=== PATIENT | male | born 1940 | race Caucasian/White ===

== ENCOUNTER → 2018-11-21 | Outpatient (CLI) | payer BC ==
--- NOTE | 2018-11-21 14:40 | RADRPT ---
Vent Rate: 51 bpm RR Interval: 1176 msec MA Interval: 181 msec QRS Duration: 158 msec QT Interval: 442 msec QTC Interval: 408 msec P-R-T [place]: 57 - -55 - 2 degrees Sinus rhythm...normal P axis, V-rate 50- 99 RBBB and LAFB...QRSd >120mS, axis(-40,240) Probable left ventricular hypertrophy...(RaVL+SV3)xQRSd >280 Electronically Signed By: Garret Talamantes
== END | disposition home or self-care (01) ==
LOC: LAB 13:45
PROVIDERS: ATTEND Internal Medicine
DX: R07.89 Other chest pain (principal); D64.9 Anemia, unspecified; D68.9 Coagulation defect, unspecified; J20.9 Acute bronchitis, unspecified
CPT/HCPCS: 71046; 80053; 81003; 85025; 85610; 85730; 93005

== ENCOUNTER 2018-12-08 06:03 | Inpatient (IN) | payer BC, MEDICARE ==
--- NOTE | 2018-12-06 20:59 | HP ---
DATE OF ADMISSION: 11/21/2018 HISTORY OF PRESENT ILLNESS: The patient is to be admitted on elective basis on 12/08/2018. The naa ent is a 78-year-old gentleman well known to me from previous followup with history of severe right h ip pain not responding to conservative management and the patient is being admitted for right hip rep lacement per Dr. Silva. REVIEW OF SYSTEMS: HEAD: No history of headaches, focal weakness or numbness. EYES: History of floaters. No history of blurry vision or glaucoma. ENT: No sinusitis, tonsillitis or hoarseness. NECK: No history of neck pain. No history of thyroid disease. CHEST: The patient denies any cough, wheezing or asthma. No history of fever or chills. Smokes cig ars occasionally. No history of hemoptysis or tuberculosis. No history of shortness of breath on mi nimal exertion. GASTROINTESTINAL: No constipation, diarrhea, change in bowel habits. Status post recent colonoscopy with polyps taken out. CARDIOVASCULAR: No chest pain, palpitations, shortness of breath. History of mild hyperlipidemia, c ontrolled on statins. GENITOURINARY: No dysuria, hematuria, kidney stones. SLEEP: The patient does tend to snore. No history of obstructive sleep apnea. MEDICATIONS: Include: 1. Pravastatin 80 mg daily. 2. Mobic 15 mg p.o. daily. 3. Protonix 40 mg p.o. daily for GERD. 4. Gabapentin 100 mg p.o. t.i.d. FAMILY HISTORY: Noncontributory. ALLERGIES: NO KNOWN ALLERGIES. PHYSICAL EXAMINATION: GENERAL: The patient is an average-built male who is presently in no acute distress. VITAL SIGNS: Blood pressure 130/90, respiratory 20 per minute. HEENT: Head is normocephalic. No pallor, cyanosis or icterus. Tongue is moist. NECK: Supple. No thyromegaly, bruits or lymphadenopathy. CHEST: Revealed decreased breath sounds at bases. HEART: S1, S2 heard. No definite gallops. ABDOMEN: Soft, nontender, obese. No hepatosplenomegaly. EXTREMITIES: No edema. Pedals are 2+ bilaterally. Homans sign is negative. NEUROLOGIC: No localizing or lateralizing signs. 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 Chest x-ray shows haziness at the left base. LABORATORY DATA: WBC count 8.3, hematocrit 44.8. INR 0.88, PTT 27.5. UA is negative for glucose, k etones, proteins. Sodium 138, potassium 4.9, BUN 33, creatinine 1.67. IMPRESSION: 1. Severe degenerative joint disease of the right hip. 2. Mild hyperlipidemia, controlled on statins. 3. Chest x-ray abnormality of haziness in the left base. Clinically, the patient does not appear to have any pneumonia, likely atelectatic changes. The patient's overall medical condition is stable f or the proposed surgery. We will obtain followup chest x-rays and also consider CT as outpatient. Dictated By: GEORGE BARRETO MD, SR/YULIA Conf#: [id number] DID#: [id number]
[~2018-12-08] VITALS: Ht 175.3 cm; Wt 99.0 kg
[2018-12-08] VITALS (25 sets, daily range): BP systolic 66–160; BP diastolic 58–85; PULSE 48–66; RESP 10–20; Ht 175.3 cm; Wt 99.0 kg
[~2018-12-08 06:03] MED LIST: CEFAZOLIN 2 GM/50 ML (PMX) 50 ML (FOR WT < 120 KG) IVPB ONE; LACTATED RINGER'S 1,000 ML IV SCH; TRANEXAMIC ACID 1GM/100ML(PMX) 100 ML AT CLOSURE X1 IVPB ONE; TRANEXAMIC ACID 1GM/100ML(PMX) 100 ML AT INCISION X1 IVPB ONE; TRANEXAMIC ACID 1GM/100ML(PMX) 100 ML INTRA-OP X1 IVPB ONE; TRANEXAMIC ACID 1GM/100ML(PMX) 100 ML PRE-OP X1 IVPB ONE
[2018-12-08] MEDS ORDERED: POLYMYXIN B 500000 UNIT INJ ONE (06:57)
[2018-12-08] MEDS ORDERED: BACITRACIN 50000 UNITS INJ ONE (06:59)
--- NOTE | 2018-12-08 07:20 | PREAC ---
Date/Time of Note Date/Time of Note DATE: 12/08/18 TIME: 07:18 Anesthesia Eval and Record Evaluation Time Pre-Procedure Interview DATE: 12/08/18 TIME: 07:18 Age 78 Sex male NPO: 8 hrs Preoperative diagnosis osteoarthritis Planned procedure right hip replacement Past Medical History Past Medical History: Includes Endo: Diabetes Musculoskeletal: Osteoarthritis GI: Obesity Surgery & Anesthesia Issues No known issue Meds Anticoagulation: No Beta Clif within 24 hr: No Reason Beta Clif not given: Pt. not on B-Clif Current Medications Lactated Ringer's 1,000 ml @ 125 mls/hr Q8H IV Last administered on 12/08/18at 06:56; Admin Dose 125 MLS/HR; Start 12/08/18 at 06:00 Meds reviewed: Yes Allergies Coded Allergies: No Known Drug Allergies (Unverified Allergy, Unknown, 11/21/18) Allergies Reviewed: Yes Labs/Studies Labs Reviewed: Reviewed by anesthesiologist test: N/A Studies: ECG, CXR Pre-procedure Exam Airway: Adequate mouth opening, Adequate thyromental dist Mallampati: Mallampati II Teeth: Normal Lung: Normal Heart: Normal ASA Physical Status ASA physical status: 2 Emergency: None Planned Anesthetic Neuraxial: Spinal Planned Pain Management Parenteral pain med Pre-operative Attestations Prior to commencing anesthesia and surgery, the patient was re-evaluated, there was verification of: *The patient's identity *The results of appropriate recent lab work and preoperative vital signs *The above evaluation not changing prior to induction *Anesthetic plan, risk benefits, alternative and complications discussed with patient/family; questions answered; patient/family understands, accepts and wishes to proceed. LUTHER RODRIGEZ Dec 08, 2018 07:19
--- NOTE | 2018-12-08 07:26 | HPN ---
Date/Time of Note Date/Time of Note DATE: 12/08/18 TIME: 07:25 Interval H&P Admission Note Pt. seen H&P reviewed: No system changes CONCEPCION STEVENSON Dec 08, 2018 07:25
[2018-12-08] MEDS ORDERED: CEFAZOLIN 1 GM INJ ONE (07:29)
[2018-12-08] MEDS ORDERED: TRANEXAMIC ACID 1 GM/100 ML (PMX) ONE (07:29)
[2018-12-08] MEDS ORDERED: SEVOFLURANE 15 MIN ONE (07:29)
[2018-12-08] MEDS ORDERED: MIDAZOLAM 1 MG/ML 2 ML INJ ONE ×2 (07:29)
[2018-12-08] MEDS ORDERED: LIDOCAINE 2% (SDV) 5 ML INJ ONE (07:29)
[2018-12-08] MEDS ORDERED: FENTAnyl 50 MCG/ML VIAL ONE (07:30)
[2018-12-08] MEDS ORDERED: PROPOFOL 20 ML ONE (07:39)
[2018-12-08] MEDS ORDERED: ROCURONIUM 50 MG INJ ONE (07:39)
[2018-12-08] MEDS ORDERED: DEXAMETHASONE 4 MG/ML 5 ML INJ ONE (08:12)
[2018-12-08] MEDS ORDERED: ONDANSETRON 4 MG INJ ONE (09:44)
--- NOTE | 2018-12-08 09:54 | SIPON ---
Date/Time of Note Date/Time of Note DATE: 12/08/18 TIME: 09:53 Operative Report Preoperative Diagnosis Right hip osteoarthritis Postoperative Diagnosis Same Operation/Procedure Performed Right total hip replacement Surgeon see signature line social service assistant JOSE C Francisco Anesthesia: spinal Estimated blood loss: 150 - 200 ml's Transfusion Required none Specimen Bone Grafts/Implants 56 mm Prosper cup, size 12 Corail stem, 36 mm +1.5 ceramic head. The stem is a KLA stem with a varus neck from the Depuy Complications none CONCEPCION STEVENSON Dec 08, 2018 09:54
--- NOTE | 2018-12-08 09:58 | OPR ---
Date/Time of Note Date/Time of Note DATE: 12/08/18 TIME: 09:54 Operative Report Procedure Date: Dec 08, 2018 Preoperative Diagnosis Right hip osteoarthritis Postoperative Diagnosis Same Operation/Procedure Performed Right total hip replacement Surgeon see signature line Carbonizer JOSE C Francisco Anesthesia Type: spinal Estimated Blood Loss: 150 - 200 ml's Transfusion none Specimen Bone Grafts/Implants Depuy hip, 56 mm cup, size 12 varus stem, 36 mm ceramic head Tubes/Drains None Complications none Pt Condition Post Procedure: stable Disposition: PACU Indications 78-year-old male with advanced osteoarthritis of his right hip Procedure Description Patient was placed supine on the operating room table. The right hip was prepped and draped in usual manner. An anterior incision was made. The plane between the sartorius and tensor fascia meri was developed in a blunt fashion. Branches of the circumflex vessels were identified and cauterized with aqua Mantis. The hip capsule was opened. Advanced osteoarthritis was encountered. The neck cut was made 1.5 cm proximal to the lesser trochanter as previously templated. Labrum and osteophytes were removed. Reaming of the acetabulum was done with Keenjar reamers up to a size 55. A 56 trial cup was well fitting. This was placed in 40 degrees of abduction and 20 degrees of anteversion. One screw was used to enhance fixation. A liner was placed to accommodate a 36 mm femoral head. The IM canal of the femur was prepared for a size 12 stem with a KLA neck. This was to accommodate the varus alignment of the neck. The length and offset were adjusted to closely match the left side. X-rays were obtained to confirm placement of the implants. Once satisfactory alignment was confirmed, the final implants were placed including a size 12 KLA stem and 36 mm +1.5 ceramic head. The final position of the implant was satisfactory. Leg length was felt to be about 2 mm longer and this was accepted due to excellent stability. The wound was irrigated and hemostasis confirmed with aqua Mantis. Pain cocktail was injected and the wound closed in layers using #1 strata fix for deep fascia, 2-0 Vicryl for subcutaneous tissue and 3-0 Monocryl for the skin. Patient was transferred to the recovery room in stable condition CONCEPCION STEVENSON Dec 08, 2018 09:58
[2018-12-08] MEDS ORDERED: NACL 0.9% 3 ML SYG IV SCH (10:00)
[2018-12-08] MEDS ORDERED: oxyCODONE 5 MG TAB PO PRN ×2 (10:00)
[2018-12-08] MEDS ORDERED: MAGNESIUM HYDROXIDE 30ML CUP PO PRN (10:00)
[2018-12-08] MEDS ORDERED: KETOROLAC 15 MG INJ IV PRN (10:00)
[2018-12-08] MEDS ORDERED: NALOXONE (0.4 MG/ML) INJ IV PRN (10:00)
[2018-12-08] MEDS ORDERED: METOCLOPRAMIDE 10 MG INJ IV PRN (10:30)
[2018-12-08] MEDS ORDERED: HYDROmorphONE 1 MG/5 ML IV SYRINGE IV PRN ×3 (10:30)
[2018-12-08] MEDS ORDERED: ALBUTEROL 0.083% (NEB) 2.5 MG/3 ML AMP HHN PRN (10:30)
[2018-12-08] MEDS ORDERED: LABETALOL HCL 20MG INJ IV PRN (10:30)
[2018-12-08] MEDS ORDERED: hydrALAzine 20 MG INJ IV PRN (10:30)
[2018-12-08] MEDS ORDERED: EPHEDrine 25 MG/5 ML SYG IV PRN (10:30)
[2018-12-08] MEDS ORDERED: MEPERIDINE 25 MG INJ IV PRN (10:30)
[2018-12-08] MEDS ORDERED: MIDAZOLAM 1 MG/ML 2 ML INJ IV PRN (10:30)
[2018-12-08] MEDS ORDERED: DIPHENHYDRAMINE 50 MG INJ IV PRN (10:30)
[2018-12-08] MEDS ORDERED: ONDANSETRON 4 MG INJ IV PRN (10:30)
[2018-12-08] MEDS ORDERED: FENTAnyl 50 MCG/ML VIAL IV PRN ×3 (10:30)
[2018-12-08] MEDS ORDERED: KETOROLAC 30 MG INJ IV PRN (10:30)
[2018-12-08] MEDS ORDERED: ACETAMINOPHEN 325 MG TAB ONE (10:43)
[2018-12-08] MEDS ORDERED: ACETAMINOPHEN 325 MG TAB PO ONE (11:00)
[2018-12-08] MEDS: GABAPENTIN 100 MG CAP PO SCH ×3 (13:30→23:04)
--- NOTE | 2018-12-08 14:02 | PN ---
DATE: 12/08/2018 The patient was seen preop, had discussed with the anesthesiologist and Dr. Stevenson and the patient wa s seen postop after right hip replacement. Patient is up on the floor, awake, alert, in no acute dis tress. Denies any chest pain or shortness of breath, no cough. PHYSICAL EXAMINATION: GENERAL: The patient is in no acute distress, presently working with physical therapy. VITAL SIGNS: Heart rate 56 per minute, blood pressure 122/64, O2 saturation 97% on 2 liters nasal ca nnula. CHEST: Clinically clear anteriorly. HEART: S1, S2 with no definite gallops. EXTREMITIES: No edema. IMPRESSION: 1. Severe degenerative joint disease of the right hip, status post right hip replacement. 2. Prediabetes. Well controlled on diet. 3. Recent finding of left lower lobe infiltrate on chest x-ray, with no known prior history of lung disease, and no clinical evidence of pneumonia. PLAN: Continue orthopedic recommendations per Dr. Stevenson. Will obtain followup chest x-ray tomorrow . The patient eventually will need further evaluation with CT of the chest. Will encourage the naa ent to take deep breaths on incentive spirometry. Recheck renal function in a.m. Dictated By: GEORGE BARRETO MD SR/NTS Conf#: [id number] DID#: [id number] CC: CONCEPCION STEVENSON MD;*EndCC*
[2018-12-08] MEDS: CEFAZOLIN 2 GM/50 ML (PMX) 50 ML IVPB SCH ×2 (15:25→23:04)
[2018-12-08] MEDS: LACTATED RINGER'S 1,000 ML IV SCH ×2 (18:13→22:28)
[2018-12-08] MEDS ORDERED: ATORVASTATIN 40 MG TAB PO SCH (21:00)
[2018-12-08] MEDS ORDERED: ACETAMINOPHEN 500 MG TAB PO PRN (22:00)
[2018-12-09 02:28] VITALS: BP 107/65; PULSE 60; RESP 20
[2018-12-09] MEDS: CEFAZOLIN 2 GM/50 ML (PMX) 50 ML IVPB SCH (06:23)
[2018-12-09 07:41] VITALS: BP 112/65; PULSE 53; RESP 18
[2018-12-09] MEDS: GABAPENTIN 100 MG CAP PO SCH (08:30)
[2018-12-09] MEDS ORDERED: CELECOXIB 100 MG CAP PO SCH (09:00)
[2018-12-09] MEDS ORDERED: ASPIRIN (EC) 81 MG TAB PO SCH (09:00)
[2018-12-09] MEDS ORDERED: MELOXICAM 7.5 MG TAB PO SCH (09:00)
[2018-12-09] MEDS ORDERED: DOCUSATE SODIUM 100 MG CAP PO SCH (09:00)
[2018-12-09] MEDS ORDERED: ONDANSETRON 4 MG INJ IV PRN (10:00)
[2018-12-09] MEDS: LACTATED RINGER'S 1,000 ML IV SCH (10:58)
--- NOTE | 2018-12-09 11:11 | PAC ---
Date/Time of Note Date/Time of Note DATE: 12/09/18 TIME: 11:10 Post-Anesthesia Notes Post-Anesthesia Note Last documented vital signs Vital Signs Date Temp Pulse Resp B/P (MAP) Pulse Ox O2 O2 Flow FiO2 Time Delivery Rate 12/09/18 98.4 53 18 112/65 99 Room Air 1100 (81) 12/08/18 2.0 11:45 Activity: WNL Respiratory function: WNL Cardiovascular function: WNL Mental status: Baseline Pain reasonably controlled: Yes Hydration appropriate: Yes Nausea/Vomiting absent: Yes LUTHER RODRIGEZ Dec 09, 2018 11:11
--- NOTE | 2018-12-09 16:10 | PN ---
DATE: 12/09/2018 SUBJECTIVE: Patient is awake, alert. Denies any chest pain or shortness of breath. Occasional coug h. VITAL SIGNS: Temperature 98.4, blood pressure 112/65, O2 sats 99% on room air. LUNGS: Clinically clear. HEART: S1, S2, no definite gallops. EXTREMITIES: No edema. LABORATORY DATA: WBC count 14.3, hematocrit 35.6, platelet count of 176,000. Sodium 138, potassium 4.8, BUN 26, creatinine 1.51, glucose 117. IMPRESSION: 1. Severe DJD, right hip, status post right total hip replacement. 2. Mild anemia. 3. Mild hyperlipidemia. 4. Initial chest x-ray showed haziness in the left base. A repeat portable chest today is clear. PLAN: Will advise the patient to take Keflex 500 b.i.d. for 7 days, Phenergan cough syrup as needed. Follow up PA and lateral chest x-ray in [address] of the chest as outpatient. Dictated By: GEORGE BARRETO MD SR/NTS Conf#: [id number] DID#: [id number] CC: CONCEPCION STEVENSON MD;*EndCC*
== END 2018-12-09 12:52 | disposition home health service (06) | DRG 470 ==
LOC: REC 06:03 → MS1 11:36
PROVIDERS: ADMIT Orthopaedic Surgery; ATTEND Orthopaedic Surgery
PROC: 0SR904A Replacement of Right Hip Joint with Ceramic on Polyethylene Synthetic Substitute, Uncemented, Open Approach (ICD-10-PCS; principal; 2018-12-08 08:00)
DX: M16.11 Unilateral primary osteoarthritis, right hip (principal); E78.5 Hyperlipidemia, unspecified; E66.9 Obesity, unspecified; Z68.32 Body mass index [BMI] 32.0-32.9, adult; R73.03 Prediabetes; D64.9 Anemia, unspecified
CPT/HCPCS: 71045; 73530; 80048; 85025; 86850; 86900; 86901; 88304; 88311; 97116; 97161; 97530; C1713; C1776; J0690; J1100; J2250; J2405; J3010; J7120